=== PATIENT | female | born 1965 | race Hispanic/Latino ===

== ENCOUNTER 2021-12-17 11:51 | Emergency (ER) | payer BC ==
[2021-12-17] MEDS ORDERED: NITROGLYCERIN 0.4 MG TAB SUBL SL PRN (12:38)
--- NOTE | 2021-12-17 12:43 | Emergency Department Report ---
ED Chest Pain HPI - General Chief Complaint: Chest Pain Stated Complaint: CHEST PAIN Time Seen by Provider: 12/17/21 12:28 Source: patient Mode of arrival: Stretcher Limitations: No Limitations - History of Present Illness Initial Comments: 56-year-old obese ex smoker with a history of hypertension presents to the hospital with complaints of sudden onset of chest pain while sitting at work. Patient is in eighth grade infant toddler lead teacher. She complained of interim sharp mid chest pain that radiated upward to the jaw and downward to the abdomen doing for approximately 20 minutes. Patient also states that she had shortness of breath and felt like there was a "vice jury consultant" around her chest, neck, and abdomen. Patient also had associated nausea without vomiting, diaphoresis, and lightheadedness. Symptoms resolved after receiving aspirin 324 mg provided by EMS. No nitroglycerin provided in route. Patient is compliant with her blood pressure medication. Denies previous history of stress test. Also denies family history of CAD. Patient does see a mold sheet cleaner Dr. Sanchez who is not affiliated who manages her blood pressure Severity scale (0 -10): 0 - Related Data Previous Rx's Medication Instructions Recorded Last Taken Type Aspirin EC [Ecotrin] 325 mg PO QDAY #30 tablet. 12/17/21 Unknown Rx Allergies Allergy/AdvReac Type Severity Reaction Status Date / Time Penicillins Allergy Anaphylaxis Verified 12/17/21 12:21 Heart Score - HEART Score History: Moderately suspicious EKG: Normal Age: 45-65 Risk factors: 1-2 risk factors Troponin: < normal limit HEART Score: 3 - EKG Read Time Time EKG Completed: 12:25 EKG Read Time: 12:32 ED Review of Systems ROS: Stated complaint: CHEST PAIN Other details as noted in HPI Comment: All other systems reviewed and negative ED Past Medical Hx - Past Medical History Previous Medical History?: Yes Hx Hypertension: Yes Additional medical history: Lyme disease, [place] spotted fever - Surgical History Past Surgical History?: No - Social History Smoking Status: Former Smoker - Medications Home Medications: Home Medications Medication Instructions Recorded Confirmed Last Taken Type Aspirin EC [Ecotrin] 325 mg PO QDAY #30 tablet. 12/17/21 Unknown Rx ED Physical Exam - General Limitations: No Limitations - Other Other exam information: General: No acute distress Head: Atraumatic Eyes: normal appearance ENT: Moist mucous membranes Neck: Normal appearance, no midline tenderness Chest: Clear to auscultation bilaterally, chest wall nontender CV: Regular rate and rhythm Abdomen: Soft, normal bowel sounds, nontender, nondistended, no rebound or guarding Back: Normal inspection Extremity: Normal inspection, full range of motion, no calf tenderness or leg edema Neuro: Alert O x 3, no facial asymmetry, speech clear, no gross motor sensory deficit Psych: Appropriate behavior Skin: No rash ED Course Vital Signs 12/17/21 12/17/21 12:12 12:47 Temperature 98.6 F Pulse Rate 75 71 Respiratory 16 Rate Blood Pressure 138/89 [Left] O2 Sat by Pulse 100 100 Oximetry - Reevaluation(s) Reevaluation #1: 12/17/21 14:53 pt reports feeling better. informed of plan for admission. requests transfer to her primary mold sheet cleaner or prefers to follow-up as outpatient with her mold sheet cleaner. I will attempt to contact her cardiology - Consultations Consultation #1: 12/17/21 14:48 Case discussed with Blanca OCONNELL working with Dr. Simon with [facility] ardiology 12/17/21 After cardiology bedside assessment and recommendation has changed permission to discharge if enzymes are negative x2 AUREA score - Aurea Score Age > 65: (0) No Aspirin use within the Past 7 Days: (0) No 3 or more CAD Risk Factors: (0) No 2 or more Angina events in past 24 hrs: (1) Yes Known CAD with more than 50% Stenosis: (0) No Elevated Cardiac Markers: (0) No ST Deviation Greater than 0.5mm: (0) No AUREA Score: 1 ED Medical Decision Making - Lab Data Result diagrams: 12/17/21 12:38 12/17/21 12:38 Lab Results 12/17/21 12/17/21 12/17/21 Range/Units 12:38 12:38 12:38 WBC 8.9 (4.5-11.0) K/mm3 RBC 5.09 H (3.65-5.03) M/mm3 Hgb 14.1 (10.1-14.3) gm/dl Hct 44.1 H (30.3-42.9) % MCV 87 (79-97) fl MCH 28 (28-32) pg MCHC 32 (30-34) % RDW 13.8 (13.2-15.2) % Plt Count 303 (140-440) K/mm3 Lymph % (Auto) 29.9 (13.4-35.0) % [place] % (Auto) 8.9 H (0.0-7.3) % Eos % (Auto) 1.4 (0.0-4.3) % Baso % (Auto) 0.8 (0.0-1.8) % Lymph # (Auto) 2.7 (1.2-5.4) K/mm3 [place] # (Auto) 0.8 (0.0-0.8) K/mm3 Eos # (Auto) 0.1 (0.0-0.4) K/mm3 Baso # (Auto) 0.1 (0.0-0.1) K/mm3 Seg Neutrophils % 59.0 (40.0-70.0) % Seg Neutrophils # 5.3 (1.8-7.7) K/mm3 PT 13.3 (12.2-14.9) Sec. INR 0.92 (0.87-1.13) APTT 34.0 (24.2-36.6) Sec. Sodium 139 (137-145) mmol/L Potassium 4.0 (3.6-5.0) mmol/L Chloride 99.1 (98-107) mmol/L Carbon Dioxide 27 (22-30) mmol/L Anion Gap 17 mmol/L BUN 20 H (7-17) mg/dL Creatinine 0.6 (0.6-1.2) mg/dL Estimated GFR > 60 ml/min BUN/Creatinine Ratio 33 % Glucose 99 (65-100) mg/dL Calcium 9.8 (8.4-10.2) mg/dL Total Bilirubin 0.20 (0.1-1.2) mg/dL AST 15 (5-40) units/L ALT 18 (7-56) units/L Alkaline Phosphatase 99 (35-129) units/L Troponin T < 0.010 (0.00-0.029) ng/mL Total Protein 7.5 (6.3-8.2) g/dL Albumin 4.3 (3.9-5) g/dL Albumin/Globulin Ratio 1.3 % - EKG Data -: EKG Interpreted by Pr EKG shows normal: sinus rhythm, intervals (QTC 442), QRS complexes (QRS duration 75), ST-T waves (No STEMI) Rate: normal (69) - EKG Data When compared to previous EKG there are: previous EKG unavailable - Radiology Data Radiology results: report reviewed CHEST 1 VIEW 12/17/2021 11:58 AM INDICATION / CLINICAL INFORMATION: Chest Pain. COMPARISON: None available. FINDINGS: SUPPORT DEVICES: None. HEART / MEDIASTINUM: No significant abnormality. LUNGS / PLEURA: No significant pulmonary or pleural abnormality. No pneumothorax. ADDITIONAL FINDINGS: No significant additional findings. IMPRESSION: 1. No acute findings. - Medical Decision Making 56-year-old female presents with chest pain with significant associated symptoms. Initial EKG does not show signs of ischemia. Initial troponin negative. Patient did have an episode of face pain during ED stay without complaints of recurrent chest pain. Heart score equals 3 case was discussed with cardiology who evaluated patient at the bedside. Patient was deemed stable for discharge of enzymes negative x2. Outpatient follow-up for stress test was advised Patient's mold sheet cleaner is Dr. Edwards who is affiliated with [facility] mid pt offered referral to our cardiology group for outpatient stress but prefers to follow-up with her doctors. Critical Care Time: No Critical care attestation.: If time is entered above; I have spent that time in minutes in the direct care of this critically ill patient, excluding procedure time. ED Disposition Clinical Impression: Chest pain Disposition: 01 HOME / SELF CARE / HOMELESS Is pt being admited?: No Does the pt Need Aspirin: No Condition: Stable Instructions: Nonspecific Chest Pain, Adult Additional Instructions: Take the medication as prescribed. Follow-up with your doctor or doctor/clinic provided. Return if symptoms worsen as indicated by your discharge instruct ions. Prescriptions: Aspirin EC [Ecotrin] 325 mg PO QDAY #30 tablet. Referrals: DEVENDRA DIALLO MD [Primary Care Provider] - 3-5 Days Your, mold sheet cleaner [Other] - 2-3 Days Time of Disposition: 17:17
--- NOTE | 2021-12-17 13:05 | XRay Report ---
CHEST 1 VIEW 12/17/2021 11:58 AM INDICATION / CLINICAL INFORMATION: Chest Pain. COMPARISON: None available. FINDINGS: SUPPORT DEVICES: None. HEART / MEDIASTINUM: No significant abnormality. LUNGS / PLEURA: No significant pulmonary or pleural abnormality. No pneumothorax. ADDITIONAL FINDINGS: No significant additional findings. IMPRESSION: 1. No acute findings. Signer Name: Kirk Marie DO Signed: 12/17/2021 1:01 PM Workstation Name: [id number]
[2021-12-17 13:25] LABS: Basophils # (Auto) 0.1 K/mm3 (0.0-0.1); Basophils % (Auto) 0.8 % (0.0-1.8); Eosinophils # (Auto) 0.1 K/mm3 (0.0-0.4); Eosinophils % (Auto) 1.4 % (0.0-4.3); Hematocrit 44.1 % (30.3-42.9); Hemoglobin 14.1 gm/dl (10.1-14.3); Lymphocytes # (Auto) 2.7 K/mm3 (1.2-5.4); Lymphocytes % (Auto) 29.9 % (13.4-35.0); Mean Corpuscular HGB Conc 32 % (30-34); Mean Corpuscular Volume 87 fl (79-97); Monocytes # (Auto) 0.8 K/mm3 (0.0-0.8); Monocytes % (Auto) 8.9 % (0.0-7.3); Platelet Count 303 K/mm3 (140-440); Red Blood Count 5.09 M/mm3 (3.65-5.03); Red Cell Distribution Width 13.8 % (13.2-15.2)
[2021-12-17 13:33] LABS: INR 0.92 (0.87-1.13)
[2021-12-17 13:44] LABS: Alanine Aminotransferase 18 units/L (7-56); Albumin 4.3 g/dL (3.9-5); Blood Urea Nitrogen 20 mg/dL (7-17); Calcium 9.8 mg/dL (8.4-10.2); Hemolysis Index 3
[2021-12-17 13:55] LABS: BUN/Creatinine Ratio 33
--- NOTE | 2021-12-17 16:17 | Consultation ---
History of Present Illness Consult date: 12/17/21 Requesting physician: TAMMI NAVA Consult reason: chest pain History of present illness: Mrs. Dewitt is a 56-year-old female with past medical history significant for obesity, hyperlipidemia, Lyme disease, hypertension, obesity, palpitations, sleep apnea who follows with , ob/gyn at [facility]. 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 She states that she began to feel severe chest tightness, like a "slide fasteners inspector was around her heart ". She rates it a 6 out of 10 in severity. She states that she also has some epigastric discomfort, some nausea. She states that she also had associated fatigue, diaphoresis and dizziness. She states nothing made it worse. 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 She denies shortness of breath, palpitations, syncope. Denies recent sick contacts. Work- up in the emergency room revealed EKG with sinus rhythm, rate 69 with no acute ischemic changes. Troponin negative x1 set. Cardiology is consulted for chest pain. Past History Past Medical History: hypertension, hyperlipidemia, other (Palpitations, Lyme disease) Past Surgical History: , Other (Left hip replacement) Social history: . denies: smoking (Ex-smoker), alcohol abuse, prescr iption drug abuse Family history: no significant family history Medications and Allergies Allergies Allergy/AdvReac Type Severity Reaction Status Date / Time Penicillins Allergy Anaphylaxis Verified 12/17/21 12:21 Active Meds: Active Medications Nitroglycerin (Nitroglycerin 0.4 Mg Tab Subl) 0.4 mg SL .Q5MIN PRN PRN Reason: Chest Pain Review of Systems All systems: negative Cardiovascular: chest pain, lightheadedness, high blood pressure, leg edema (Reports occasional leg edema), no orthopnea, no palpitations, no rapid/irreg ular heart beat, no edema, no syncope, no shortness of breath, no dyspnea on exertion, no paroxysmal nocturnal dyspnea Respiratory: no cough, no cough with sputum, no sleep apnea Gastrointestinal: nausea Physical Examination Vital Signs Temp Pulse Resp BP Pulse Ox 98.6 F 75 16 138/89 100 12/17/21 12:12 12/17/21 12:12 12/17/21 12:12 12/17/21 12:12 12/17/21 12:12 General appearance: no acute distress HEENT: Positive: EOMI Neck: Positive: neck supple, trachea midline Cardiac: Positive: Reg Rate and Rhythm, S1/S2 Lungs: Positive: Normal Exam, clear to auscultation Neuro: Positive: Grossly Intact Abdomen: Positive: Unremarkable, Soft Female genitourinary: deferred Skin: Positive: Clear Extremities: Present: normal, upper extr. pulses (2+). Absent: edema Results 12/17/21 12:38 12/17/21 12:38 Cardiac Enzymes 12/17/21 Range/Units 12:38 AST 15 (5-40) units/L Coagulation 12/17/21 Range/Units 12:38 PT 13.3 (12.2-14.9) Sec. INR 0.92 (0.87-1.13) APTT 34.0 (24.2-36.6) Sec. CBC 12/17/21 Range/Units 12:38 WBC 8.9 (4.5-11.0) K/mm3 RBC 5.09 H (3.65-5.03) M/mm3 Hgb 14.1 (10.1-14.3) gm/dl Hct 44.1 H (30.3-42.9) % Plt Count 303 (140-440) K/mm3 Lymph # (Auto) 2.7 (1.2-5.4) K/mm3 [place] # (Auto) 0.8 (0.0-0.8) K/mm3 Eos # (Auto) 0.1 (0.0-0.4) K/mm3 Baso # (Auto) 0.1 (0.0-0.1) K/mm3 Comprehensive Metabolic Panel 12/17/21 Range/Units 12:38 Sodium 139 (137-145) mmol/L Potassium 4.0 (3.6-5.0) mmol/L Chloride 99.1 (98-107) mmol/L Carbon Dioxide 27 (22-30) mmol/L BUN 20 H (7-17) mg/dL Creatinine 0.6 (0.6-1.2) mg/dL Glucose 99 (65-100) mg/dL Calcium 9.8 (8.4-10.2) mg/dL AST 15 (5-40) units/L ALT 18 (7-56) units/L Alkaline Phosphatase 99 (35-129) units/L Total Protein 7.5 (6.3-8.2) g/dL Albumin 4.3 (3.9-5) g/dL - Imaging and Cardiology EKG: report reviewed, image reviewed EKG interpretations - Telemetry EKG Rhythm: Sinus Rhythm - EKG Sinus rhythms and dysrhythmias: sinus rhythm (Nonspecific ST T wave abnormality; no acute ischemia) Assessment and Plan Assessment Chest Pain Hypertension Hyperlipidemia H/o Lyme Disease H/o Palpitations Obesity Plan: Patient with chest pain with typical and atypical features EKG NSR, 69, nonspecific ST-T wave abnormalities. No acute ischemic changes Heart score: 3 Trend troponin. If negative x 2, patient may be discharged home to follow up with primary ob/gyn in 1 week. In the setting of history of Lyme disease, recommend oral anti-inflammatory medication. Please notify if second troponin comes back abnormal. Discharge on home medications. Thank you for this consultation. Patient seen and examined in conjunction with Dr. Simon who agrees with assessment and plan of care. - Patient Problems (1) Chest pain Current Visit: Yes Status: Acute (2) H/o Lyme disease Current Visit: Yes Status: Acute (3) Hypertension Current Visit: Yes Status: Acute (4) Hyperlipemia Current Visit: Yes Status: Acute (5) Ex-smoker Current Visit: Yes Status: Acute
[2021-12-17 17:56] VITALS: BP 134/64
--- NOTE | 2021-12-19 10:38 | Electrocardiograph Report ---
[facility] Test Date: 2021-12-17 Test Time: 12:25:32 Pat Name: DON JONES Department: Room: Gender: F Refrigeration Manager: YADIRA : 1965 Requested By: TAMMI NAVA Order Number: [id number] Reading MD: Genet Baer Measurements Intervals [place] Rate: 69 P: 37 DE: 144 QRS: 58 QRSD: 75 T: 53 QT: 412 QTc: 442 Interpretive Statements Sinus rhythm Low voltage, precordial leads No previous ECG available for comparison Electronically Signed On 12-19-2021 10:37:28 EDT by Genet Baer
== END 2021-12-17 17:53 | disposition home or self-care (01) ==
LOC: ED 11:51
DX: R07.89 Other chest pain (principal); I10 Essential (primary) hypertension; Z87.891 Personal history of nicotine dependence; Z88.0 Allergy status to penicillin; Z79.899 Other long term (current) drug therapy
CPT/HCPCS: 36415; 71045; 80053; 84484; 85025; 85610; 85730; 93005; 99284